=== PATIENT | female | born 1975 | race Caucasian/White ===

== ENCOUNTER 2019-08-05 11:20 | Outpatient (CLI) | payer OTHER, SELFPAY ==
[2019-08-05 11:49] LABS: Basophils Absolute Auto 0.1 K/mm3 (0.0-0.1); Basophils Percent Auto 1.1 % (0.2-1.2); Eosinophils Absolute Auto 0.2 K/mm3 (0-0.3); Eosinophils Percent Auto 3.6 % (0-4.4); Hematocrit 37.9 % (37.0-47.0); Hemoglobin 12.5 g/dL (12.0-15.0); Immature Granulocyte Absolute 0.02 K/mm3 (0.00-0.031); Immature Granulocyte Percent A 0.4 % (0-0.5); Lymphocytes Absolute Auto 1.49 K/mm3 (0.9-3.2); Lymphocytes Percent Auto 28.2 % (18.3-44.2); Mean Corpuscular Volume 96.9 fl (80-100); Mean Platelet Volume 8.7 fl (7.4-10.4); Monocytes Absolute Auto 0.5 K/mm3 (0.1-0.6); Monocytes Percent Auto 9.8 % (2.6-8.5); Neutrophils Percent Auto 56.9 % (45.5-73.1); Platelet Count Result 384 k/mm3 (150-375); Red Blood Count 3.91 M/mm3 (4.2-5.4); Red Cell Distribution Width 13.8 % (11.5-14.5); White Blood Count 5.3 K/mm3 (4.5-10.0)
[2019-08-05 12:03] LABS: Alanine Aminotransferase 16 U/L (4-35); Albumin Level 4.7 g/dL (3.5-5.1); Alkaline Phosphatase 85 U/L (38-126); Aspartate Amino Transferase 27 U/L (14-36); Bilirubin,Total 0.7 mg/dL (0.2-1.3); Blood Urea Nitrogen 14 mg/dL (7-17); Calcium 9.2 mg/dL (8.4-10.2); Carbon Dioxide 28 mmol/L (22-30); Chloride 100 mmol/L (98-107); Cholesterol 246 mg/dL (0-200); Estimated Glomerular Filt Rate > 60; Glucose 94 mg/dL (65-105); HDL Direct 88 mg/dL; Potassium 4.3 mmol/L (3.4-5.0); Sodium 134 mmol/L (137-145); Triglycerides 82 mg/dL (<150)
[2019-08-05 12:14] LABS: LDL Cholesterol Direct 144 mg/dL
[2019-08-05 17:09] LABS: Hemoglobin A1C 5.1 % (<5.7)
[2019-08-07 01:00] LABS: Homocysteine 13.6 umol/L (<10.4)
[2019-08-07 09:12] LABS: Vitamin D 1,25 (OH)2 Total 58 pg/mL (18-72); Vitamin D2 1,25 (OH)2 <8 pg/mL; Vitamin D3 1,25 (OH)2 58 pg/mL
[2019-08-08 04:45] LABS: Prolactin 4.9 ng/mL (***)
== END 2019-08-05 11:21 | disposition home or self-care (01) ==
LOC: ANHLAB 11:24
PROVIDERS: PCP Internal Medicine; Visit Provider Internal Medicine
DX: E55.9 Vitamin D deficiency, unspecified (principal); Z79.899 Other long term (current) drug therapy
CPT/HCPCS: 36415; 80053; 80061; 82652; 83036; 83090; 84146; 84439; 84443; 85025

== ENCOUNTER 2019-12-19 08:11 | Outpatient (CLI) | payer BC, SELFPAY ==
[2019-12-19 08:50] LABS: Alanine Aminotransferase 25 U/L (4-35); Albumin Level 4.6 g/dL (3.5-5.1); Alkaline Phosphatase 69 U/L (38-126); Anion Gap 8 mmol/L (8-16); Aspartate Amino Transferase 25 U/L (14-36); Bilirubin,Total 0.4 mg/dL (0.2-1.3); Blood Urea Nitrogen 12 mg/dL (7-17); Calcium 9.2 mg/dL (8.4-10.2); Carbon Dioxide 27 mmol/L (22-30); Chloride 100 mmol/L (98-107); Cholesterol 147 mg/dL (0-200); Estimated Glomerular Filt Rate > 60; Glucose 107 mg/dL (65-105); HDL Direct 66 mg/dL; Sodium 135 mmol/L (137-145); Triglycerides 74 mg/dL (<150)
[2019-12-19 09:01] LABS: LDL Cholesterol Direct 56 mg/dL
[2019-12-22 07:16] LABS: Homocysteine 8.4 umol/L (<10.4)
== END 2019-12-19 08:12 | disposition home or self-care (01) ==
LOC: ANHLAB 08:13
PROVIDERS: PCP Internal Medicine; Visit Provider Internal Medicine
DX: Z79.899 Other long term (current) drug therapy (principal); R79.89 Other specified abnormal findings of blood chemistry; E53.8 Deficiency of other specified B group vitamins
CPT/HCPCS: 36415; 80053; 80061; 83090; 84443

== ENCOUNTER 2020-09-18 08:26 | Outpatient (CLI) | payer BC, SELFPAY ==
[2020-09-18 08:42] LABS: Basophils Absolute Auto 0.1 K/mm3 (0.0-0.1); Basophils Percent Auto 1.3 % (0.2-1.2); Eosinophils Absolute Auto 0.1 K/mm3 (0-0.3); Eosinophils Percent Auto 1.9 % (0-4.4); Hematocrit 39.2 % (37.0-47.0); Hemoglobin 13.3 g/dL (12.0-15.0); Immature Granulocyte Absolute 0.01 K/mm3 (0.00-0.031); Immature Granulocyte Percent A 0.2 % (0-0.5); Lymphocytes Absolute Auto 1.44 K/mm3 (0.9-3.2); Lymphocytes Percent Auto 31.1 % (18.3-44.2); Mean Corpuscular HGB Conc 33.9 g/dl (32-36); Mean Corpuscular Volume 94.2 fl (80-100); Mean Platelet Volume 8.6 fl (7.4-10.4); Monocytes Absolute Auto 0.5 K/mm3 (0.1-0.6); Neutrophils Absolute Auto 2.5 K/mm3 (1.3-6.7); Neutrophils Percent Auto 54.5 % (45.5-73.1); Platelet Count Result 410 k/mm3 (150-375); Red Blood Count 4.16 M/mm3 (4.2-5.4); Red Cell Distribution Width 13.1 % (11.5-14.5); White Blood Count 4.6 K/mm3 (4.5-10.0)
[2020-09-18 08:53] LABS: Anion Gap 8 mmol/L (8-16); Blood Urea Nitrogen 10 mg/dL (7-17); Calcium 9.6 mg/dL (8.4-10.2); Carbon Dioxide 29 mmol/L (22-30); Chloride 102 mmol/L (98-107); Cholesterol 242 mg/dL (0-200); Estimated Glomerular Filt Rate > 60; Glucose 105 mg/dL (65-105); HDL Direct 80 mg/dL; Potassium 4.2 mmol/L (3.4-5.0); Sodium 139 mmol/L (137-145); Triglycerides 104 mg/dL (<150)
[2020-09-18 09:04] LABS: LDL Cholesterol Direct 108 mg/dL
[2020-09-18 10:08] LABS: Folic Acid > 20.0 ng/mL (2.76->20)
[2020-09-18 10:38] LABS: Free T4 Free Thyroxine 0.95 ng/mL (0.78-2.19)
[2020-09-21 09:31] LABS: Vitamin D 1,25 (OH)2 Total 92 pg/mL (18-72); Vitamin D2 1,25 (OH)2 <8 pg/mL; Vitamin D3 1,25 (OH)2 92 pg/mL
== END 2020-09-18 08:27 | disposition home or self-care (01) ==
PROVIDERS: PCP Internal Medicine; Visit Provider Internal Medicine
DX: E78.2 Mixed hyperlipidemia (principal); E55.9 Vitamin D deficiency, unspecified; Z51.81 Encounter for therapeutic drug level monitoring; Z79.899 Other long term (current) drug therapy; E53.8 Deficiency of other specified B group vitamins
CPT/HCPCS: 36415; 80048; 80061; 82607; 82652; 82746; 83036; 84439; 84443; 85025

== ENCOUNTER 2020-10-10 12:39 | Outpatient (CLI) | payer BC, SELFPAY ==
[2020-10-10 13:10] LABS: Add Urine Microscopic? NO; Appearance Urine Clear (Clear); Bilirubin Urine Negative (Negative); Blood Urine Negative (Negative); Color Urine Straw (Yellow); Glucose Urine UA Negative (Negative); Ketones Urine Negative (Negative); Leukocyte Esterase Ur Negative LEU/UL (Negative); Nitrate Urine Negative (Negative); Protein Urine Negative (Negative); Specific Grav Ur 1.009 (1.001-1.035); Urobilinogen Urine Negative mg/dL (<2.0)
== END 2020-10-10 12:40 | disposition home or self-care (01) ==
LOC: ANHLAB 12:41
PROVIDERS: PCP Internal Medicine; Visit Provider Internal Medicine
DX: R39.9 Unspecified symptoms and signs involving the genitourinary system (principal)
CPT/HCPCS: 81003

== ENCOUNTER 2020-10-17 13:47 | Outpatient (NON) | payer BC, SELFPAY | END 2020-10-17 13:48 | disposition home or self-care (01) | LOC: ANHLAB 13:49 | PROVIDERS: PCP Internal Medicine; Visit Provider Obstetrics & Gynecology | DX: R19.7 Diarrhea, unspecified (principal) | CPT/HCPCS: 87045; 87046; 87177; 87209; 87324; 87427 ==

== ENCOUNTER 2021-01-21 02:20 | Day surgery (SDC) | payer OTHER, SELFPAY ==
[2021-01-10 11:09] VITALS: BMI 26.6
[2021-01-21 11:07] VITALS: BP 118/77; PULSE 63; RESP 18; TEMP 36.3; O2SAT 99
[2021-01-21] MEDS: LACTATED RINGERS 1,000 ML 150 ML IV CONT (11:10)
--- NOTE | 2021-01-21 11:23 | P.PNAN_ITS ---
Anes - Initial Pre Proc Eval Procedure: Operation Date: 01/21/21 12:30 Proposed Procedures p Colonoscopy - Ryan Bell MD Date/Time: 01/21/21 11:23 Surgeon: Ryan Bell MD Pre Op Diagnosis: diarrhea Patient Data Age: 45 Gender: F Height: 1.7 m Weight: 82.2 kg Last Vital Signs Temp 36.3 C L 01/21/21 11:07 Pulse 63 01/21/21 11:07 Resp 18 01/21/21 11:07 BP 118/77 01/21/21 11:07 Pulse Ox 99 01/21/21 11:07 Allergies Allergy/AdvReac Type Severity Reaction Status Date / Time No Known Allergies Allergy Mild Verified 01/21/21 11:06 Home Medications Medication Instructions Recorded Confirmed Type omega-3 fatty acids 1,000 mg 2,000 mg PO BID cap 09/23/19 01/10/21 History capsule fluoxetine 40 mg capsule 40 mg PO DAILY #30 cap 09/18/20 01/10/21 Rx atorvastatin 40 mg PO DAILY 11/01/20 01/10/21 History folic acid 1 mg PO DAILY 11/01/20 01/10/21 History Patient hx anesthesia problems: none Family hx anesthesia problems: none Results Review: All pre-operative results and documents have been reviewed as part of the pre-operative evaluation. 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 Trigger finger of left thumb Urinary frequency Urinary urgency Vitamin B 12 deficiency Vitamin D deficiency Surgical History Surgical History H/O total hysterectomy 10/2014 Social History Social History Smoking packs per day: 1 Smoking cigarettes per day: 20.0 Years smoked: 5 Smoking pack-years: 5.00 Smoking status: Former smoker Tobacco type: cigarettes Alcohol intake: current Drinks per week: 6 Alcohol use details: socially Substance use: never Substance use type: does not use Living arrangements: with family Spiritual care concerns: No Anes - Eval Final PreProcedure Day of Procedure 01/21/21 11:23 Patient weight: overweight Heart: regular rate and rhythm Lungs: clear to auscultation and normal air movement Airway: Mallampati scale class II Neurological: alert and oriented Last oral intake: >/= 8 hours ASA classification: II Emergent: no Anesthetic plan: proceed Anesthesia type and monitoring: general GIVS and standard monitoring Results Review: All pre-operative results and documents have been reviewed as part of the pre-operative evaluation. Informed Consent: The patient's anesthetic plan and its attendant risks and benefits were discussed with the patient/family/POA. Questions were solicited and answers provided to the satisfaction of the patient/family/POA.
--- NOTE | 2021-01-21 11:25 | PM.HPGS ---
History of Present Illness History of Present Illness Consent: Risks, benefits, and alternatives have been discussed and questions answered. Patient agrees to proceed with procedure. Chief complaint: diarrhea Narrative: Zena Burton is a 45 year old female who has been troubled by severe diarrhea for the past 3 months. She also has had pain in the right lower quadrant. Investigation by gynecology has revealed only 1 small cyst in the right ovary. She recalls having been told when she was at [facility] for similar symptoms a couple years ago that she might have ileitis, but she was not referred to anybody for follow-up. there has not been any weight loss. Her pain is better if she lies still but more noticeable she moves Review of Systems Review of Systems: All systems reviewed & are unremarkable except as noted in HPI and below PMFSH Past Medical History Medical History Adult acne Anxiety with depression BMI 27.0-27.9,adult BMI 28.0-28.9,adult Chronic nasal congestion Contact dermatitis Elevated homocysteine Encounter for routine adult health examination with abnormal findings Encounter for routine adult health examination without abnormal findings Exposure to COVID-19 virus Fatigue Follow up GERD (gastroesophageal reflux disease) Insomnia Mixed hyperlipidemia 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 Trigger finger of left thumb Urinary frequency Urinary urgency Vitamin B 12 deficiency Vitamin D deficiency Surgical History Surgical History H/O total hysterectomy 10/2014 Social History Social History Smoking packs per day: 1 Smoking cigarettes per day: 20.0 Years smoked: 5 Smoking pack-years: 5.00 Smoking status: Former smoker Tobacco type: cigarettes Alcohol intake: current Drinks per week: 6 Alcohol use details: socially Substance use: never Substance use type: does not use Living arrangements: with family Spiritual care concerns: No Meds Home Medications and Allergies Home Medications Medication Instructions Recorded Confirmed Type omega-3 fatty acids 1,000 mg 2,000 mg PO BID cap 09/23/19 01/10/21 History capsule fluoxetine 40 mg capsule 40 mg PO DAILY #30 cap 09/18/20 01/10/21 Rx atorvastatin 40 mg PO DAILY 11/01/20 01/10/21 History folic acid 1 mg PO DAILY 11/01/20 01/10/21 History Allergies Allergy/AdvReac Type Severity Reaction Status Date / Time No Known Allergies Allergy Mild Verified 01/21/21 11:06 Vital Signs Vital Signs - 24 hr 01/21/21 11:07 Temperature 36.3 C L Pulse Rate 63 Respiratory Rate 18 Blood Pressure 118/77 Pulse Oximetry 99 Exam Resp: Auscultation: clear to auscultation bilaterally Cardio: Rate: regular rate Rhythm: regular rhythm GI: GI Palp: Yes Soft to palpation and No Tenderness to palpation present (GI) Assessment and Plan Assessment and plan (1) Chronic diarrhea: Code(s): K52.9 - Noninfective gastroenteritis and colitis, unspecified Status: Acute Assessment and Plan: Colonoscopy with possible biopsy or polypectomy or cautery or injection of substances.
[2021-01-21 12:54] VITALS: BP 103/69; PULSE 61; RESP 22; O2SAT 99
[2021-01-21 13:04] VITALS: BP 109/77; PULSE 56; RESP 16; O2SAT 99
[2021-01-21 13:14] VITALS: BP 114/82; PULSE 61; RESP 16; O2SAT 100
== END 2021-01-21 13:19 | disposition home or self-care (01) ==
PROVIDERS: PCP Internal Medicine; Visit Provider Internal Medicine Gastroenterology
PROC: 0DJD8ZZ Inspection of Lower Intestinal Tract, Via Natural or Artificial Opening Endoscopic (ICD-10-PCS; CPT 45378; principal; 2021-01-21 12:30)
DX: K52.9 Noninfective gastroenteritis and colitis, unspecified (principal); K57.30 Diverticulosis of large intestine without perforation or abscess without bleeding; E78.2 Mixed hyperlipidemia; F41.8 Other specified anxiety disorders; E55.9 Vitamin D deficiency, unspecified; E53.8 Deficiency of other specified B group vitamins; Z87.891 Personal history of nicotine dependence
CPT/HCPCS: 45380; 88305; J2704; J7120

== ENCOUNTER → 2021-05-04 00:54 | Outpatient (CLI) | payer OTHER, SELFPAY ==
[2021-05-04 23:19] LABS: SARS-CoV-2 RNA PCR Positive
== END ==
PROVIDERS: PCP Internal Medicine; Visit Provider Internal Medicine
DX: U07.1 COVID-19 (principal)
CPT/HCPCS: C9803; U0003; U0005

== ENCOUNTER 2021-06-14 09:25 | Outpatient (CLI) | payer OTHER, SELFPAY ==
[2021-06-14 09:48] LABS: Basophils Absolute Auto 0.1 K/mm3 (0.0-0.1); Basophils Percent Auto 1.1 % (0.2-1.2); Eosinophils Absolute Auto 0.3 K/mm3 (0-0.3); Eosinophils Percent Auto 6.2 % (0-4.4); Hematocrit 37.9 % (37.0-47.0); Hemoglobin 12.9 g/dL (12.0-15.0); Immature Granulocyte Absolute 0.01 K/mm3 (0.00-0.031); Immature Granulocyte Percent A 0.2 % (0-0.5); Lymphocytes Absolute Auto 1.65 K/mm3 (0.9-3.2); Lymphocytes Percent Auto 30.8 % (18.3-44.2); Mean Corpuscular Hemoglobin 33.5 pg (26-34); Mean Corpuscular Volume 98.4 fl (80-100); Mean Platelet Volume 8.9 fl (7.4-10.4); Monocytes Absolute Auto 0.6 K/mm3 (0.1-0.6); Monocytes Percent Auto 11.4 % (2.6-8.5); Neutrophils Absolute Auto 2.7 K/mm3 (1.3-6.7); Neutrophils Percent Auto 50.3 % (45.5-73.1); Platelet Count Result 344 k/mm3 (150-375); Red Blood Count 3.85 M/mm3 (4.2-5.4); Red Cell Distribution Width 13.4 % (11.5-14.5); White Blood Count 5.4 K/mm3 (4.5-10.0)
[2021-06-14 09:58] LABS: Alanine Aminotransferase 32 U/L (4-35); Albumin Level 4.5 g/dL (3.5-5.1); Alkaline Phosphatase 56 U/L (38-126); Anion Gap 7 mmol/L (8-16); Aspartate Amino Transferase 31 U/L (14-36); Bilirubin,Total 0.7 mg/dL (0.2-1.3); Blood Urea Nitrogen 15 mg/dL (7-17); Calcium 8.8 mg/dL (8.4-10.2); Carbon Dioxide 26 mmol/L (22-30); Chloride 103 mmol/L (98-107); Cholesterol 180 mg/dL (0-200); Estimated Glomerular Filt Rate > 60; Glucose 99 mg/dL (65-110); HDL Direct 49 mg/dL; Potassium 4.3 mmol/L (3.4-5.0); Sodium 136 mmol/L (137-145); Triglycerides 116 mg/dL (<150)
[2021-06-14 09:59] LABS: INR 0.9; Prothrombin Time 11.9 Seconds (11.1-14.7)
[2021-06-14 10:09] LABS: LDL Cholesterol Direct 93 mg/dL
[2021-06-14 10:10] LABS: Hemoglobin A1C 5.1 % (<5.7)
[2021-06-14 10:23] LABS: Free T4 Free Thyroxine 0.92 ng/mL (0.78-2.19); Vitamin D 25 Hydroxy 39.3 ng/mL
[2021-06-14 11:10] LABS: Folic Acid > 20.0 ng/mL (2.76->20)
== END 2021-06-14 09:26 | disposition home or self-care (01) ==
PROVIDERS: PCP Internal Medicine; Visit Provider Internal Medicine
DX: E53.8 Deficiency of other specified B group vitamins (principal); Z13.29 Encounter for screening for other suspected endocrine disorder; Z79.899 Other long term (current) drug therapy; E78.2 Mixed hyperlipidemia; Z01.818 Encounter for other preprocedural examination; E55.9 Vitamin D deficiency, unspecified; Z13.1 Encounter for screening for diabetes mellitus
CPT/HCPCS: 36415; 80053; 80061; 82306; 82607; 82746; 83036; 84439; 84443; 85025; 85610; 85730

== ENCOUNTER 2021-06-27 07:44 | Outpatient (CLI) | payer OTHER, SELFPAY ==
--- NOTE | ~2021-06-27 | MM_ITS ---
EXAMINATION: MM scrn ken implant BI w dez HISTORY: Screening mammogram TECHNIQUE: Craniocaudal and mediolateral oblique 3-D tomosynthesis images with implant displacement a nd synthetic 2-D images were generated. Craniocaudal and mediolateral oblique views of the breasts wi thout implant displacement were obtained using full field digital mammography. CAD analysis was submi tted and interpreted. COMPARISON: 07/16/2017 BREAST PARENCHYMAL COMPOSITION: The breasts are heterogeneously dense, which may obscure small masses . FINDINGS: There is no evidence of suspicious mass, calcification, or architectural distortion to sugg est malignancy in either breast. There has been no suspicious interval change. IMPRESSION: 1. No mammographic evidence of malignancy. 2. Recommend routine screening mammography in one year. BI-RADS Category 1: Negative Reviewed, dictated and finalized at location A. 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
== END 2021-06-27 07:45 | disposition home or self-care (01) ==
LOC: ANHIMG 07:47
PROVIDERS: PCP Internal Medicine; Visit Provider Internal Medicine
DX: Z12.31 Encounter for screening mammogram for malignant neoplasm of breast (principal)
CPT/HCPCS: 77063; 77067

== ENCOUNTER 2021-12-11 08:05 | Outpatient (CLI) | payer OTHER, SELFPAY ==
[2021-12-11 08:30] LABS: Basophils Absolute Auto 0.1 K/mm3 (0.0-0.1); Basophils Percent Auto 1.6 % (0.2-1.2); Eosinophils Absolute Auto 0.4 K/mm3 (0-0.3); Eosinophils Percent Auto 6.3 % (0-4.4); Hematocrit 40.3 % (37.0-47.0); Hemoglobin 13.4 g/dL (12.0-15.0); Immature Granulocyte Absolute 0.02 K/mm3 (0.00-0.031); Immature Granulocyte Percent A 0.3 % (0-0.5); Lymphocytes Absolute Auto 2.03 K/mm3 (0.9-3.2); Lymphocytes Percent Auto 31.8 % (18.3-44.2); Mean Corpuscular HGB Conc 33.3 g/dl (32-36); Mean Corpuscular Hemoglobin 32.2 pg (26-34); Mean Corpuscular Volume 96.9 fl (80-100); Monocytes Absolute Auto 0.6 K/mm3 (0.1-0.6); Monocytes Percent Auto 8.6 % (2.6-8.5); Neutrophils Absolute Auto 3.3 K/mm3 (1.3-6.7); Neutrophils Percent Auto 51.4 % (45.5-73.1); Platelet Count Result 336 k/mm3 (150-375); Red Blood Count 4.16 M/mm3 (4.2-5.4); Red Cell Distribution Width 13.2 % (11.5-14.5); White Blood Count 6.4 K/mm3 (4.5-10.0)
[2021-12-11 08:37] LABS: Appearance Urine Clear (Clear); Bilirubin Urine Negative (Negative); Blood Urine Negative (Negative); Color Urine Yellow (Yellow); Glucose Urine UA Negative (Negative); Ketones Urine Negative (Negative); Leukocyte Esterase Ur Negative LEU/UL (Negative); Nitrate Urine Negative (Negative); Protein Urine Negative (Negative); Urobilinogen Urine 0.2 mg/dL (<2.0); pH Urine 6.5 (5.0-9.0)
[2021-12-11 08:43] LABS: Add Urine Microscopic? YES
[2021-12-11 08:47] LABS: Alanine Aminotransferase 16 U/L (6-35); Albumin Level 4.6 g/dL (3.5-5.1); Alkaline Phosphatase 53 U/L (38-126); Anion Gap 8 mmol/L (8-16); Aspartate Amino Transferase 25 U/L (14-36); Bilirubin,Total 0.6 mg/dL (0.2-1.3); Blood Urea Nitrogen 14 mg/dL (7-17); Calcium 8.6 mg/dL (8.4-10.2); Carbon Dioxide 25 mmol/L (22-30); Chloride 103 mmol/L (98-107); Cholesterol 196 mg/dL (0-200); Estimated Glomerular Filt Rate > 60; Glucose 97 mg/dL (65-110); HDL Direct 60 mg/dL; Potassium 4.5 mmol/L (3.4-5.0); Sodium 136 mmol/L (137-145); Triglycerides 100 mg/dL (<150)
[2021-12-11 08:57] LABS: LDL Cholesterol Direct 90 mg/dL
[2021-12-11 09:17] LABS: Free T4 Free Thyroxine 0.96 ng/mL (0.78-2.19)
[2021-12-11 09:49] LABS: Hemoglobin A1C 5.1 % (<5.7)
[2021-12-14 07:18] LABS: FSH 12.2 mIU/mL (***); LH 12.1 mIU/mL (***); Progesterone 1.3 ng/mL (***); Prolactin 6.4 ng/mL (***)
== END 2021-12-11 08:06 | disposition home or self-care (01) ==
LOC: ANHLAB 08:06
PROVIDERS: PCP Internal Medicine; Visit Provider Internal Medicine
DX: Z00.00 Encounter for general adult medical examination without abnormal findings (principal); E78.2 Mixed hyperlipidemia; E55.9 Vitamin D deficiency, unspecified; Z79.899 Other long term (current) drug therapy
CPT/HCPCS: 36415; 80053; 80061; 81001; 82306; 82672; 83001; 83002; 83036; 84144; 84146; 84439; 84443; 85025

== ENCOUNTER 2022-01-13 06:39 | Outpatient (CLI) | payer SELFPAY ==
--- NOTE | ~2022-01-13 | XR_ITS ---
EXAMINATION:XR cervical spine 4-5V DATE: 01/13/2022 07:05 INDICATION: Neck pain TECHNIQUE: AP, lateral, lateral swimmers and odontoid views of the cervical spine are provided. COMPARISON: None FINDINGS: There is straightening of the cervical spine which can be positional or due to muscular spa sm. Alignment is normal. The odontoid is intact. No fracture is identified. The vertebral body height s are maintained. There is mild loss of intervertebral disc space height at C5-6. Small degenerative osteophytes project from the anterior endplates of multiple vertebral bodies. Prevertebral soft tissu es are normal. IMPRESSION: 1. Mild cervical spondylosis without acute findings. Reviewed, dictated and finalized at location A.
[2022-01-19 16:32] LABS: Estrogen 358.8 pg/mL
== END 2022-01-13 06:40 | disposition home or self-care (01) ==
LOC: ANHLAB 06:41
PROVIDERS: PCP Internal Medicine; Visit Provider Internal Medicine
DX: Z00.00 Encounter for general adult medical examination without abnormal findings (principal); Z79.899 Other long term (current) drug therapy; Z90.710 Acquired absence of both cervix and uterus; M47.892 Other spondylosis, cervical region
CPT/HCPCS: 36415; 72050; 82672

== ENCOUNTER 2022-04-17 14:21 | Outpatient (CLI) | payer OTHER, SELFPAY ==
[2022-04-17 16:04] LABS: Influenza A QL RT-PCR Positive (Negative); Influenza B QL RT-PCR Negative (Negative); SARS-CoV-2 RNA PCR Negative
== END 2022-04-17 14:22 | disposition home or self-care (01) ==
LOC: ANHLAB 14:22
PROVIDERS: PCP Internal Medicine; Visit Provider Internal Medicine
DX: R50.9 Fever, unspecified (principal); Z20.822 Contact with and (suspected) exposure to COVID-19
CPT/HCPCS: 87636

== ENCOUNTER 2022-09-19 17:05 | Outpatient (CLI) | payer SELFPAY ==
--- NOTE | ~2022-09-19 | XR_ITS ---
EXAMINATION: XR lumbar spine 2-3V, XR hip LT min 3V w AP pelvis DATE: 09/19/2022 17:31 INDICATION: Left-sided low back pain TECHNIQUE: 1. Anteroposterior and lateral views of the lumbar spine, and cone-down lateral view of the lumbosacr al junction were obtained. 2. AP view of the pelvis and AP, frog leg and crosstable lateral views of the left hip were obtained. COMPARISON: Lumbar spine MR dated 02/13/2011 and pelvis radiographs dated 09/19/2022 FINDINGS: Lumbar spine: 7 degrees thoracolumbar dextrocurvature. Sagittal alignment is normal. Vertebral body heights are nor mal. Mild disc height loss at L5-S1. Moderate lower lumbar facet osteoarthritis. 2 mm stone projectin g over the lower pole of the right kidney potentially renal stone. Pelvis and left hip: Alignment is normal. No fracture or suspected avascular necrosis. Mild bilateral hip and sacroiliac o steoarthritis. Small opacities in the bilateral pelvis with appearance favoring combination of phlebo liths and bilateral tubal ligation rings. IMPRESSION: 1. 7 degree thoracolumbar dextrocurvature with mild lower lumbar spondylosis. 2. Mild bilateral hip and sacroiliac osteoarthritis. 3. 2 mm density, potentially renal stone, projecting over the lower pole of the right kidney. Reviewed, dictated and finalized at location A. IMPRESSION: 1. 7 degree thoracolumbar dextrocurvature with mild lower lumbar spondylosis. 2. Mild bilateral hip and sacroiliac osteoarthritis. 3. 2 mm density, potentially renal stone, projecting over the lower pole of the right kidney.
[2022-09-19 17:37] LABS: Hemoglobin A1C 5.3 % (<5.7)
[2022-09-19 17:39] LABS: Alanine Aminotransferase 25 U/L (6-35); Alkaline Phosphatase 72 U/L (38-126); Anion Gap 7 mmol/L (8-16); Aspartate Amino Transferase 30 U/L (14-36); Bilirubin,Total 0.4 mg/dL (0.2-1.3); Blood Urea Nitrogen 15 mg/dL (7-17); Calcium 9.2 mg/dL (8.4-10.2); Carbon Dioxide 29 mmol/L (22-30); Chloride 102 mmol/L (98-107); Cholesterol 207 mg/dL (0-200); Estimated Glomerular Filt Rate > 60; Glucose 113 mg/dL (65-110); HDL Direct 75 mg/dL; Potassium 4.4 mmol/L (3.4-5.0); Sodium 138 mmol/L (137-145); Triglycerides 72 mg/dL (<150)
[2022-09-19 17:50] LABS: LDL Cholesterol Direct 103 mg/dL
[2022-09-19 17:56] LABS: Free T4 Free Thyroxine 0.93 ng/mL (0.78-2.19)
[2022-09-19 18:10] LABS: Thyroid Stimulating Hormone 0.417 uIU/mL (0.465-4.680)
[2022-09-19 18:45] LABS: Folic Acid 12.5 ng/mL (2.76->20)
[2022-09-24 05:46] LABS: Lyme Disease Ab (IgM), Blot Negative (Negative); Lyme Disease Ab(IgG), Blot Negative (Negative)
[2022-09-29 22:59] LABS: Vitamin B2 18.3 nmol/L (6.2-39.0)
== END 2022-09-19 17:06 | disposition home or self-care (01) ==
PROVIDERS: PCP Internal Medicine; Visit Provider Internal Medicine
DX: Z13.29 Encounter for screening for other suspected endocrine disorder (principal); Z79.899 Other long term (current) drug therapy; Z13.1 Encounter for screening for diabetes mellitus; E53.8 Deficiency of other specified B group vitamins; R79.89 Other specified abnormal findings of blood chemistry; E53.9 Vitamin B deficiency, unspecified; E78.2 Mixed hyperlipidemia; M54.50 Low back pain, unspecified; M16.0 Bilateral primary osteoarthritis of hip; M53.3 Sacrococcygeal disorders, not elsewhere classified
CPT/HCPCS: 36415; 72100; 73502; 80053; 80061; 82607; 82746; 83036; 84252; 84439; 84443; 86617

== ENCOUNTER 2023-07-16 16:45 | Outpatient (CLI) | payer OTHER, SELFPAY ==
--- NOTE | ~2023-07-16 | XR_ITS ---
EXAM: XR sinus min 3V DATE: 07/16/2023 17:01 HISTORY: J01.90 - Acute sinusitis, unspecified X 2 MONTHS . COMPARISON: None available. FINDINGS: Normal mineralization. The aerated spaces are clear. Intact, symmetric orbits. No fracture . No abnormal intracranial calcification.. IMPRESSION: Normal sinus radiograph findings. If symptoms persist, recommend CT of the sinuses for fu rther evaluation. Reviewed, dictated and finalized at location K. IMPRESSION: Normal sinus radiograph findings. If symptoms persist, recommend CT of the sinuses for further evaluation.
== END 2023-07-16 16:46 | disposition home or self-care (01) ==
LOC: ANHIMG 16:48
PROVIDERS: PCP Internal Medicine; Visit Provider Internal Medicine
DX: J01.90 Acute sinusitis, unspecified (principal)
CPT/HCPCS: 70220

== ENCOUNTER 2023-08-15 09:52 | Outpatient (CLI) | payer OTHER, SELFPAY ==
--- NOTE | ~2023-08-15 | XR_ITS ---
XR hand RT 2V DATE: 08/15/2023 10:09 INDICATION: Jammed fifth digit 1 month ago TECHNIQUE: AP and lateral views of right hand COMPARISON: None FINDINGS: Approximately 1.5 mm dorsally displaced intraarticular fracture of the dorsal base of the d istal phalanx of the fifth digit. No other aneurysm fracture or dislocation is detected IMPRESSION: Intra-articular dorsally displaced fracture of the base of the distal phalanx of the fift h digit Reviewed, dictated and finalized at location A. IMPRESSION: Intra-articular dorsally displaced fracture of the base of the dist al phalanx of the fifth digit
== END 2023-08-15 09:53 | disposition home or self-care (01) ==
LOC: ANHIMG 09:53
PROVIDERS: PCP Internal Medicine; Visit Provider Internal Medicine
DX: S63.256A Unspecified dislocation of right little finger, initial encounter (principal); X58.XXXA Exposure to other specified factors, initial encounter
CPT/HCPCS: 73120

== ENCOUNTER 2023-10-09 15:56 | Outpatient (CLI) | payer OTHER, SELFPAY ==
--- NOTE | ~2023-10-09 | MM_ITS ---
EXAMINATION: MM screening ken BI w dez HISTORY: Screening TECHNIQUE: Craniocaudal and mediolateral oblique 3-D tomosynthesis images were obtained and synthetic 2-D images were generated. CAD analysis was submitted and interpreted. COMPARISON: Comparison to multiple prior studies sequentially, with oldest reviewed study dated 07/16. BREAST PARENCHYMAL COMPOSITION: Dense: The breasts are heterogeneously dense, which may obscure small masses FINDINGS: There is no evidence of suspicious mass, calcification, or architectural distortion to sugg est malignancy in either breast. There has been no suspicious interval change. IMPRESSION: 1. No mammographic evidence of malignancy. 2. Recommend routine screening mammography in one year. BI-RADS Category 1: Negative Reviewed, dictated and finalized at location B.
== END 2023-10-09 15:57 | disposition home or self-care (01) ==
PROVIDERS: PCP Internal Medicine; Visit Provider Obstetrics & Gynecology
DX: Z12.31 Encounter for screening mammogram for malignant neoplasm of breast (principal)
CPT/HCPCS: 77063; 77067

== ENCOUNTER 2024-01-19 07:55 | Outpatient (CLI) | payer OTHER, SELFPAY ==
--- NOTE | ~2024-01-19 | XR_ITS ---
SINGLE AP VIEW PELVIS Ordering provider: Ivan Madrid MD History: . M54.9 - Dorsalgia, unspecified FALL FROM HORSE X 3 WKS AGO . Comparison: January 19, 2024 FINDINGS: BONES: No acute fracture or dislocation. HIP JOINT SPACES: Normal. SACROILIAC JOINT SPACES/LUMBAR SPINE: The sacroiliac joint spaces are normal. Normal visualized lower lumbar spine. PUBIC SYMPHYSIS: Normal. SOFT TISSUES: Normal. IMPRESSION: No acute osseous abnormality pelvis. Reviewed, dictated and finalized at location A.
--- NOTE | ~2024-01-19 | XR_ITS ---
XR sacroiliac joints min 3V Ordering provider: Ivan Madrid MD History: . M54.50 - Low back pain, unspecified . Comparison: None. FINDINGS: BONES: No acute fracture or dislocation. JOINTS: The bilateral sacroiliac joint spaces appear well maintained. No bony fusion of the sacroilia c joints or bony erosions. SOFT TISSUES: Unremarkable. IMPRESSION: NO ACUTE OSSEOUS ABNORMALITY. NORMAL SACROILIAC JOINTS. Reviewed, dictated and finalized at location A.
--- NOTE | ~2024-01-19 | XR_ITS ---
Lumbosacral Spine: AP and lateral views Clinical History: Pain Findings: The normal lordotic curve is maintained. The vertebral bodies and posterior elements are i ntact. There is degenerative narrowing of the L5-S1 discs. The remaining intervertebral disc spaces a re preserved. There is mild to moderate facet arthropathy in the lower lumbar spine. The sacroiliac j oints are normally outlined. Impression: [id number] degenerative spondylosis, as above. Reviewed, dictated and finalized at location M. Impression: [id number] degenerative spondylosis, as above.
[2024-01-19 08:30] LABS: Add Urine Microscopic? NO; Appearance Urine Clear (Clear); Bilirubin Urine Negative (Negative); Blood Urine Negative (Negative); Color Urine Yellow (Yellow); Glucose Urine UA Negative (Negative); Ketones Urine Negative (Negative); Leukocyte Esterase Ur Negative LEU/UL (Negative); Nitrate Urine Negative (Negative); Protein Urine Negative (Negative); Specific Grav Ur 1.002 (1.001-1.035); Urobilinogen Urine 0.2 mg/dL (<2.0)
[2024-01-19 08:31] LABS: Basophils Absolute Auto 0.1 K/mm3 (0.0-0.1); Basophils Percent Auto 1.9 % (0.2-1.2); Eosinophils Absolute Auto 0.5 K/mm3 (0-0.3); Eosinophils Percent Auto 8.2 % (0-4.4); Hematocrit 37.7 % (37.0-47.0); Hemoglobin 12.6 g/dL (12.0-15.0); Immature Granulocyte Absolute 0.01 K/mm3 (0.00-0.031); Immature Granulocyte Percent A 0.2 % (0-0.5); Lymphocytes Absolute Auto 1.87 K/mm3 (0.9-3.2); Mean Corpuscular HGB Conc 33.4 g/dl (32-36); Mean Corpuscular Hemoglobin 32.5 pg (26-34); Mean Corpuscular Volume 97.2 fl (80-100); Mean Platelet Volume 8.9 fl (7.4-10.4); Monocytes Absolute Auto 0.6 K/mm3 (0.1-0.6); Monocytes Percent Auto 9.9 % (2.6-8.5); Neutrophils Absolute Auto 2.8 K/mm3 (1.3-6.7); Neutrophils Percent Auto 47.8 % (45.5-73.1); Platelet Count Result 313 k/mm3 (150-375); Red Blood Count 3.88 M/mm3 (4.2-5.4); Red Cell Distribution Width 12.8 % (11.5-14.5); White Blood Count 5.8 K/mm3 (4.5-10.0)
[2024-01-19 08:41] LABS: Alanine Aminotransferase 17 U/L (6-35); Albumin Level 4.3 g/dL (3.5-5.1); Alkaline Phosphatase 65 U/L (38-126); Anion Gap 7 mmol/L (4-12); Aspartate Amino Transferase 24 U/L (14-36); Bilirubin,Total 0.6 mg/dL (0.2-1.3); Blood Urea Nitrogen 14 mg/dL (7-17); Calcium 8.5 mg/dL (8.4-10.2); Carbon Dioxide 28 mmol/L (22-30); Chloride 103 mmol/L (98-107); Cholesterol 170 mg/dL (0-200); Estimated Glomerular Filt Rate > 60; Glucose 87 mg/dL (65-110); HDL Direct 62 mg/dL; Potassium 4.2 mmol/L (3.4-5.0); Sodium 138 mmol/L (137-145); Triglycerides 150 mg/dL (<150)
[2024-01-19 08:51] LABS: LDL Cholesterol Direct 76 mg/dL
[2024-01-19 09:37] LABS: Free T4 Free Thyroxine 0.79 ng/mL (0.78-2.19)
[2024-01-19 11:38] LABS: Hemoglobin A1C 5.3 % (<5.7)
== END 2024-01-19 07:56 | disposition home or self-care (01) ==
PROVIDERS: PCP Internal Medicine; Visit Provider Internal Medicine
DX: E55.9 Vitamin D deficiency, unspecified (principal); E53.8 Deficiency of other specified B group vitamins; E78.2 Mixed hyperlipidemia; R53.83 Other fatigue; Z13.29 Encounter for screening for other suspected endocrine disorder; Z13.1 Encounter for screening for diabetes mellitus; M54.50 Low back pain, unspecified; M25.552 Pain in left hip; Z79.899 Other long term (current) drug therapy
CPT/HCPCS: 36415; 72100; 72170; 72202; 80053; 80061; 81003; 82306; 82607; 82746; 83036; 84439; 84443; 85025

== ENCOUNTER 2024-09-27 17:05 | Outpatient (CLI) | payer OTHER, SELFPAY ==
--- OUTSIDE RECORDS SUMMARY | 2024-09-27 17:27 | XMS_ITS | Clinical Summary ---
Author Organization [facility] Address [facility] [place] [address] Care Team Providers Care Tight Rope Walker Name Role Phone Ivan Madrid MD Primary Care Provider [phone] Source Comments [facility],non-owned Affiliates and Associated Physician Practices is amultiple site organization consisting of ambulatory clinics and hospital sitesin [place], [place], [place] and [place]. This disclosure is being madepursuant to the Care Everywhere program and may not contain all information available regarding this patient. Last updated 18.[facility] Allergies No known active allergies Medications * Be aware that medications may not be up to date on this document. Alwaysverify current medications with the patient. Escitalopram Oxalate (LEXAPRO PO) Active benzonatate (TESSALON) 200 MG capsule Take 1 capsule by mouth 3 times daily as needed for Cough 30 capsule 10/11/2018 Active Family History Relation Name Status Comments Father Mother Alive Social History Tobacco Use Types Packs/Day Years Used Date Smoking Tobacco: Never Smokeless Tobacco: Never Tobacco Cessation:Counseling Given: Yes Comments No Sex and Gender Information Value Date Recorded Sex Assigned at Not on file Legal Sex Female 6:04 AM CDT Gender Identity Not on file Sexual Orientation Not on file Last Filed Vital Signs Vital Sign Reading Time Taken Comments Blood Pressure 112/70 10/11/2018 2:42 PM CDT Pulse 57 10/11/2018 2:42 PM CDT Temperature 36.7 C (98 F) 10/11/2018 2:42 PM CDT Respiratory Rate 16 10/11/2018 2:42 PM CDT Oxygen Saturation 95% 10/11/2018 2:42 PM CDT Inhaled Oxygen Concentration - - Weight 68 kg (150 lb) 10/11/2018 2:42 PM CDT Height 170.2 cm (5' 7) 10/11/2018 2:42 PM CDT Body Mass Index 23.49 10/11/2018 2:42 PM CDT Plan of Treatment Health Maintenance Due Date Last Done Comments COLOGUARD (AGES 45-75) - COL ON CA SCREENING 1974 COLON MONITORING 1974 COLONOSCOPY - COLON CA SCREENING 1974 CT COLONOGRAPHY - COLON CA SCREENING 1974 Colorectal Cancer Screening 1974 FIT - COLON CA SCREENING 1974 FLEX SIG - COLON CA SCREENING 1974 LIPID TESTING 1974 MAMMOGRAM 1974 HIV SCREENING 1989 HEPATITIS C SCREENING 01/31/1992 DTAP/TDAP/TD VACCINES (1 - Tdap) 1993 HEPATITIS B VACCINE (1 of 3 - 19+ 3-dose series) 1993 COVID-19 VACCINE ( - 2023-2 5 season) 2023 PNEUMOCOCCAL VACCINE 50+ (1 of 1 - PCV) 02/05/2024 ZOSTER VACCINE (1 of 2) 02/05/2024 DEPRESSION SCREENING 04/20/2024 INFLUENZA VACCINE (Season Ended) 2024 HIB VACCINE Aged Out No longer eligi ble based on patient's age to complete this topic HPV VACCINE Aged Out No longer eligi ble based on patient's age to complete this topic MENINGOCOCCAL (Group B) VACC INE SHARED DECISION-MAKING Aged Out No longer eligibl e based on patient's age to complete this topic MENINGOCOCCAL GROUPS A/C/Y/W VACCINE Aged Out No longer eligible b ased on patient's age to complete this topic Insurance [facility] Care Teams Tight Rope Walker Relationship Specialty Start Date End Date Ivan Madrid MD [address] [place] [address] PCP - General Internal Medicine 08/29/17
--- OUTSIDE RECORDS SUMMARY | 2024-09-27 17:27 | XMS_ITS | Patient Health Record ---
Author Organization [facility] Address [address] [facility] [address] [facility] [place] [address] Care Team Providers Care It Program Manager Name Role Phone IRVING FIELDS, ALAINA Primary Care Provider Unavailab Jamie Welsh Unavailable [phone] ALLERGIES Allergen (clinical drug ingredient) Drug/Non Drug Allergy documented on EMR Reaction Allergy Type Onset Date Status tizanidine Tizanidine HCl anxiety Drug Allergy A ctive REASON FOR REFERRAL No Information MEDICATIONS Medication SIG (Take, Route, Frequency, Duration) Notes Start Date End Date Status Voltaren 1 % apply 4 grams to guido nful joint(s) Transdermal 4x/day as needed for pain for 30 days Active Pennsaid 2 % 2 pumps Externally T wice a day for 30 days 03/27/2020 Active CeleBREX 100 MG 1 capsule with food Orally Once a day for 30 day(s) 03/23/2020 Active Atorvastatin Calcium 40 MG TK 1 T PO D Oral for 30 Active FLUoxetine HCl 40 MG Oral for 30 Active buPROPion HCl ER (XL) 300 MG TK 1 T PO QAM Oral for 30 Ac tive ProAir RespiClick 108 (90 Base) MCG/ACT Inhalation for 17 Active Naproxen 500 MG 1 tablet with food o r milk as needed Orally every 12 hrs Active PROBLEMS Problem Type ICD Code Onset Dates Problem Status W/U Status Risk SNOMED Code Notes Problem Unilateral primary osteoarthritis, left hip (M16.12) Active confirmed Localized, primary osteoarthritis of the pelvic region and thigh (444649436) Problem Osteoarthritis of hip, unspecified (M16.9) Active confirmed Osteoarthritis of hip (610299946) Problem Bilateral primary osteoarthritis of knee (M17.0) Active confirmed Osteoarthritis of knee (707188827) Problem Primary osteoarthritis, 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) Active confirmed Localized, primary osteoarthritis of the hand (776023882) Problem Unspecified osteoarthritis, unspecified site (M19.90) Active confirmed Osteoarthritis (184661412) Problem Pain in unspecified hip (M25.559) Active confirmed Arthralgia of t he pelvic region and thigh (018222266) Problem Spondylosis without myelopathy or radiculopathy, cervical region (M47.812) Active confirmed Cervical spondylosis without myelopathy (006306166) Problem Spondylosis without myelopathy or radiculopathy, cervicothoracic region (M47.813) Active confirmed Cervical spondylosis without myelopathy (767913049) Problem Radiculopathy, cervical region (M54.12) Active confirmed Cervical radiculopathy (81659416) Problem Trigger thumb, left thumb (M65.312) Active confirmed Acquired trigge r finger (3635825) PLAN OF TREATMENT Pending Test Test Name Order Date MRI : Cervical Spine without Contrast (7 0555) 08/04/2022 Insurance Providers Payer Name Payer Address Payer Phone Subscriber Number Group Number Insured Name Patient Relationship to Insured Coverage Start Date Coverage End Date Wendie DONOHUE [address] [place] [id number] LAMONTE GONZALEZ Self - patient is the insured MEDICAL (GENERAL) HISTORY Surgical History Surgery Date(Month/Year)
--- OUTSIDE RECORDS SUMMARY | 2024-09-27 17:27 | XMS_ITS | Continuity of Care Document ---
Author Organization [facility] Address [address] [place] [address] Phone Care Team Providers Care High Density Talc Coater Operator Name Role Phone Destiny Bray Unavailable Unavailable Advance Directives Directive Yes / No Effective Date File Name No Information Encounters Encounter Description Practice Location Reason(s) For Visit Diagnoses Date Provider Providers Copied on Encounter [facility], [address], [place], [place], [id number], [place] tel:[phone] [facility] No Information [facility] Katarina Dixon. [address], [place], [address], [place]. tel:[phone] Family History Family Member Type Diagnosis Age At Onset No Information Payers Payer name Insurance type Covered libertarian ID Authoriza tion(s) No Information Social History Type Description Quantity Date Captured Comments Sex Female Smoking Status No Information Chief Complaint And Reason For Visit No Information Reason For Referral Reason For Referral No Information History Of Present Illness Encounter Date Complaint History Of Prese nt Illness No Information Functional Status Date Functional Assessmen t No Information Instructions Date Instruction Additional Infor mation No Information Assessments Type Assessment Date No Information Patient Care Teams Name Effective Dates (start - stop) Status Members No Information
[2024-09-27 17:35] LABS: Alanine Aminotransferase 27 U/L (6-35); Albumin Level 4.5 g/dL (3.5-5.1); Alkaline Phosphatase 82 U/L (38-126); Anion Gap 8 mmol/L (4-12); Aspartate Amino Transferase 35 U/L (14-36); Bilirubin,Total 0.5 mg/dL (0.2-1.3); Blood Urea Nitrogen 13 mg/dL (7-17); Calcium 9.5 mg/dL (8.4-10.2); Carbon Dioxide 23 mmol/L (22-30); Chloride 105 mmol/L (98-107); Cholesterol 229 mg/dL (0-200); Estimated Glomerular Filt Rate > 60; Glucose 91 mg/dL (65-110); HDL Direct 81 mg/dL; Potassium 4.1 mmol/L (3.4-5.0); Sodium 136 mmol/L (137-145); Total Protein 7.2 g/dL (6.3-8.2); Triglycerides 92 mg/dL (<150)
[2024-09-27 17:46] LABS: LDL Cholesterol Direct 112 mg/dL
[2024-09-27 17:51] LABS: Vitamin D 25 Hydroxy 32.8 ng/mL
[2024-09-27 19:28] LABS: Hemoglobin A1C 5.1 % (<5.7)
== END 2024-09-27 17:06 | disposition home or self-care (01) ==
LOC: ANHLAB 17:08
PROVIDERS: PCP Internal Medicine; Visit Provider Internal Medicine
DX: Z13.1 Encounter for screening for diabetes mellitus (principal); Z13.29 Encounter for screening for other suspected endocrine disorder; E78.2 Mixed hyperlipidemia; E55.9 Vitamin D deficiency, unspecified; Z79.899 Other long term (current) drug therapy
CPT/HCPCS: 36415; 80053; 80061; 82306; 83036; 84443

== ENCOUNTER 2024-09-29 08:36 | Outpatient (CLI) | payer OTHER, SELFPAY ==
--- NOTE | ~2024-09-29 | XR_ITS ---
Left Hand Technique: PA, oblique, and lateral views were obtained. Clinical History: Pain Findings: No acute fracture or dislocation is seen. Osseous alignment is anatomic. There is moderate degenerative change of the first CMC joint. Soft tissues are unremarkable. Impression: Moderate degenerative change of the first CMC joint, with possible loose body. Reviewed, dictated and finalized at [facility] [place]. Impression: Moderate degenerative change of the first CMC joint, with possible loose body.
--- NOTE | ~2024-09-29 | XR_ITS ---
Left wrist Technique: PA, oblique, lateral, and ulnar deviation views were obtained. Clinical History: Pain Findings: No acute fracture or dislocation is seen. Osseous alignment is anatomic. There is moderate degenerative change of the first CMC joint with possible loose body present at this joint region. Sof t tissues are unremarkable. Impression: Moderate degenerative change of the first CMC joint with possible loose body. Reviewed, dictated and finalized at location . Impression: Moderate degenerative change of the first CMC joint with possible loose body.
--- NOTE | ~2024-09-29 | XR_ITS ---
Cervical Spine: AP, lateral, oblique, open-mouth views Clinical History: Pain Findings: The normal lordotic curve is maintained. No fracture or subluxation seen. There is moderate degenerative disc narrowing from C3 through C7.. Pre-vertebral soft tissues are unremarkable. Impression: Multilevel moderate degenerative disc narrowing, as above. Reviewed, dictated and finalized at [facility]. Impression: Multilevel moderate degenerative disc narrowing, as above.
--- NOTE | ~2024-09-29 | XR_ITS ---
XR shoulder LT min 2V 09/29/2024 09:09 Indication: Left shoulder pain Procedure: 4 views left shoulder Comparison: No prior studies for comparison. Findings: There is anatomic alignment. No fracture, subluxation or dislocation. No soft tissue abnorm ality. No foreign bodies. Impression: 1: No significant bone or joint abnormality. Reviewed, dictated and finalized at location [] Impression: 1: No significant bone or joint abnormality.
--- OUTSIDE RECORDS SUMMARY | 2024-09-29 08:56 | XMS_ITS | Continuity of Care Document ---
Author Organization [facility] Address [address] [place] [address] Phone Care Team Providers Care Gas Appliance Servicer Helper Name Role Phone Destiny Bray Unavailable Unavailable Advance Directives Directive Yes / No Effective Date File Name No Information Encounters Encounter Description Practice Location Reason(s) For Visit Diagnoses Date Provider Providers Copied on Encounter [facility], [address], [place], [place], [id number], [place] tel:[phone] [facility] No Information Si[address] Katarina Dixon. [address] , [address], [place], [address], [place]. tel:[phone] Family History Family Member Type Diagnosis Age At Onset No Information Payers Payer name Insurance type Covered republican ID Authoriza tion(s) No Information Social History [...]
--- OUTSIDE RECORDS SUMMARY | 2024-09-29 08:56 | XMS_ITS | Clinical Summary ---
Author Organization [facility] Address [facility] [address] Care Team Providers Care Animal Care Service Worker Name Role Phone Ivan Madrid MD Primary Care Provider [phone] Source Comments [facility],non-owned Affiliates and Associated Physician Practices is amultiple site organization consisting of ambulatory clinics and hospital sitesin [place], [place], [place] and [place]. This disclosure is being madepursuant to the Care Everywhere program and may not contain all information available regarding this patient. Last updated 18.[facility] Allergies No known active allergies Medications * [...] age to complete this topic Insurance [facility] [place] [address] Care Teams Animal Care Service Worker Relationship Specialty Start Date End Date Ivan Madrid MD [address] [place] [address] PCP - General Internal Medicine 08/29/17
== END 2024-09-29 08:37 | disposition home or self-care (01) ==
LOC: ANHIMG 08:42
PROVIDERS: PCP Internal Medicine; Visit Provider Internal Medicine
DX: M18.12 Unilateral primary osteoarthritis of first carpometacarpal joint, left hand (principal); M50.31 Other cervical disc degeneration, high cervical region; M50.321 Other cervical disc degeneration at C4-C5 level; M50.322 Other cervical disc degeneration at C5-C6 level; M50.323 Other cervical disc degeneration at C6-C7 level; M25.512 Pain in left shoulder
CPT/HCPCS: 72050; 73030; 73110; 73130

== ENCOUNTER 2024-10-31 17:44 | Outpatient (CLI) | payer OTHER, SELFPAY ==
--- NOTE | ~2024-10-31 | XR_ITS ---
EXAM: XR shoulder LT min 2V DATE: 10/31/2024 18:12 HISTORY: M25.519 - Pain in unspecified shoulder . COMPARISON: 09/29/2024. FINDINGS: Normal mineralization. No fracture or dislocation. No lytic or blastic lesion. Mild degene rative change at the AC joint and glenohumeral joint. No erosion or periosteal change. Soft tissues w ithin normal limits. IMPRESSION: No acute osseous finding in the left shoulder. Reviewed, dictated and finalized at location K.
--- NOTE | ~2024-10-31 | XR_ITS ---
Cervical Spine: AP, lateral, open-mouth views Clinical History: Pain Findings: The normal lordotic curve is maintained. The vertebral bodies and posterior elements appea r intact. There is mild to moderate degenerative disc narrowing from C3 through C7. There is mild fac et arthropathy in the cervical spine. No instability evident on flexion or extension. Pre-vertebral s oft tissues are unremarkable. Impression: Mild to moderate degenerative spondylosis, as above. Reviewed, dictated and finalized at location M. Impression: Mild to moderate degenerative spondylosis, as above.
--- OUTSIDE RECORDS SUMMARY | 2024-10-31 17:54 | XMS_ITS | Patient Health Record ---
Author Organization [facility] Address [address] [place] [address] Care Team Providers Care Installers Mechanical Name Role Phone IRVING FIELDS, ALAINA Primary Care Provider Unavailab Jamie Welsh Unavailable [phone] ALLERGIES Allergen (clinical drug ingredient) Drug/Non Drug [...] osteoarthritis of the pelvic region and thigh (966395389) Problem Osteoarthritis of hip, unspecified (M16.9) Active confirmed Osteoarthritis of hip (743789620) Problem Bilateral primary osteoarthritis of knee (M17.0) Active confirmed Osteoarthritis of knee (472473271) Problem Primary osteoarthritis, 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) Active confirmed Localized, primary osteoarthritis of the hand (584979858) Problem Unspecified osteoarthritis, unspecified site (M19.90) Active confirmed Osteoarthritis (820609620) Problem Pain in unspecified hip (M25.559) Active confirmed Arthralgia of t he pelvic region and thigh (560245854) Problem Spondylosis without myelopathy or radiculopathy, cervical region (M47.812) Active confirmed Cervical spondylosis without myelopathy (409797295) Problem Spondylosis without myelopathy or radiculopathy, cervicothoracic region (M47.813) Active confirmed Cervical spondylosis without myelopathy (523978859) Problem Radiculopathy, cervical region (M54.12) Active confirmed Cervical radiculopathy (43605984) Problem Trigger thumb, left thumb (M65.312) Active confirmed Acquired trigge r finger (3919514) PLAN OF TREATMENT Pending Test Test Name Order Date MRI : Cervical Spine without Contrast (7 0569) 08/04/2022 Insurance Providers Payer Name Payer Address Payer Phone Subscriber Number Group Number Insured Name Patient Relationship to Insured Coverage Start Date Coverage End Date Wendie DONOHUE [address] [place] [phone] [id number] LAMONTE GONZALEZ Self - patient is the insured MEDICAL (GENERAL) HISTORY Surgical History Surgery Date(Month/Year)
--- OUTSIDE RECORDS SUMMARY | 2024-10-31 17:54 | XMS_ITS | Clinical Summary ---
Author Organization [facility] Address [facility] [place] [address] Care Team Providers Care Count Team Clerk Name Role Phone Ivan Madrid MD Primary Care Provider [phone] Source Comments [facility],non-owned Affiliates and Associated Physician Practices is amultiple site organization consisting of ambulatory clinics and hospital sitesin [place], [place], [place] and [place]. This disclosure is being madepursuant to the Care Everywhere program and may not contain all information available regarding this patient. Last updated 18.[facility] Allergies No known active allergies Medications * [...] - 19+ 3-dose series) 1993 COVID-19 VACCINE (1 - 2023-2 5 season) 2023 PNEUMOCOCCAL VACCINE 50+ (1 of 1 - PCV) 02/05/2024 ZOSTER VACCINE (1 of 2) 02/05/2024 DEPRESSION SCREENING 04/20/2024 INFLUENZA VACCINE (#1) 2024 HIB VACCINE Aged Out No longer [...] patient's age to complete this topic Insurance [facility] Care Teams Count Team Clerk Relationship Specialty Start Date End Date Ivan Madrid MD [address] [place] [address] PCP - General Internal Medicine 08/29/17
--- OUTSIDE RECORDS SUMMARY | 2024-10-31 17:54 | XMS_ITS | Continuity of Care Document ---
Author Organization [facility] Address [address] [place] [address] Phone Care Team Providers Care Product Specialist Name Role Phone Destiny Bray Unavailable Unavailable Advance Directives Directive Yes / No Effective Date File Name No Information Encounters Encounter Description Practice Location Reason(s) For Visit Diagnoses Date Provider Providers Copied on Encounter [facility], [address], [place], [place], [id number], [place] tel:[phone] [facility] ([facility]) No Information [facility]0 [address] Katarina Dixon. [address] , [address], [place], [address], [place]. tel:[phone] Family History Family Member Type Diagnosis Age At Onset No Information Payers Payer name Insurance type Covered green party ID Authoriza tion(s) No Information Social History [...]
== END 2024-10-31 17:45 | disposition home or self-care (01) ==
PROVIDERS: PCP Internal Medicine; Visit Provider Internal Medicine
DX: M47.812 Spondylosis without myelopathy or radiculopathy, cervical region (principal); M25.519 Pain in unspecified shoulder
CPT/HCPCS: 72050; 73030

== ENCOUNTER 2025-03-31 16:12 | Outpatient (CLI) | payer OTHER, SELFPAY ==
[2025-03-31 16:50] LABS: Hematocrit 37.4 % (37.0-47.0); Hemoglobin 12.4 g/dL (12.0-15.0); Immature Granulocyte Percent A 0.2 % (0-0.5); Lymphocytes Absolute Auto 2.51 K/mm3 (0.9-3.2); Mean Corpuscular HGB Conc 33.2 g/dl (32-36); Mean Corpuscular Hemoglobin 31.6 pg (26-34); Mean Corpuscular Volume 95.2 fl (80-100); Nucleated Red Blood Cells Absolute Auto 0.000 K/mm3 (0.0-0.012); Nucleated Red Blood Cells Perc 0.0 % (0.0-0.2); Platelet Count Result 365 k/mm3 (150-375); Red Blood Count 3.93 M/mm3 (4.2-5.4); White Blood Count 6.5 K/mm3 (4.5-10.0)
[2025-03-31 16:54] LABS: Add Urine Microscopic? YES; Appearance Urine Clear (Clear); Glucose Urine UA Negative (Negative); Leukocyte Esterase Ur 2+ LEU/UL (Negative); Nitrate Urine Negative (Negative); Non Pathogenic Casts 0-2; Specific Grav Ur 1.004 (1.001-1.035)
[2025-03-31 17:02] LABS: Hemoglobin A1C 5.2 % (<5.7)
[2025-03-31 17:11] LABS: Alanine Aminotransferase 59 U/L (6-35); Albumin Level 4.6 g/dL (3.5-5.1); Alkaline Phosphatase 65 U/L (38-126); Anion Gap 5 mmol/L (4-12); Aspartate Amino Transferase 40 U/L (14-36); Bilirubin,Total 0.4 mg/dL (0.2-1.3); Blood Urea Nitrogen 11 mg/dL (7-17); Calcium 9.3 mg/dL (8.4-10.2); Carbon Dioxide 30 mmol/L (22-30); Chloride 101 mmol/L (98-107); Cholesterol 239 mg/dL (0-200); Estimated Glomerular Filt Rate > 60; Glucose 92 mg/dL (65-110); HDL Direct 72 mg/dL; Potassium 3.8 mmol/L (3.4-5.0); Sodium 136 mmol/L (137-145); Total Protein 7.4 g/dL (6.3-8.2); Triglycerides 133 mg/dL (<150)
[2025-03-31 17:28] LABS: Free T4 Free Thyroxine 0.80 ng/dL (0.78-2.19)
[2025-03-31 17:43] LABS: Thyroid Stimulating Hormone 0.195 uIU/mL (0.465-4.680)
[2025-04-03 12:11] LABS: Free T3 3.33 pg/mL (2.71-6.16)
== END 2025-03-31 16:13 | disposition home or self-care (01) ==
PROVIDERS: PCP Internal Medicine; Visit Provider Internal Medicine
DX: Z13.1 Encounter for screening for diabetes mellitus (principal); R79.89 Other specified abnormal findings of blood chemistry; E78.2 Mixed hyperlipidemia; Z79.899 Other long term (current) drug therapy
CPT/HCPCS: 36415; 80053; 80061; 81001; 83036; 84439; 84443; 84481; 85025; 87086